=== PATIENT | male | born 1965 | race Caucasian/White ===

== ENCOUNTER 2023-12-28 14:38 | Outpatient (OUT) | payer MEDICAID, SELFPAY ==
--- NOTE | 2023-12-28 14:46 | XR_ITS ---
The [address] [address] Patient Name: JACQUE FRANKLIN MRN: [id number] date: 1965 Sex: M Assigned Patient Location: [facility] Current Patient Location: Accession/Order Number: [id number] Exam Date: 12/28/2023 14:50 Report Date: 12/30/2023 04:34 At the request of: ASHELY WRIGHT Procedure: XR clavicle LT PROCEDURE: XR clavicle LT HISTORY: Clavicle enlargement M89.319 COMPARISON: None. FINDINGS: BONES:No fracture, dislocation, or appreciable bone lesion. Mild degenerative changes of the acromioclavicular joint. SOFT TISSUES:No visible soft tissue swelling. EFFUSION:None visible. OTHER: Negative. XR/XR clavicle LT IMPRESSION: 1. No appreciable acute bone abnormality or significant degenerative changes involving the sternoclavicular joint, but evaluation of the sternoclavicular joint is limited on a frontal radiograph. Consider CT chest for further evaluation if clinically indicated. Electronically authenticated by: JOSH THOMPSON Date: 12/30/2023 04:34
== END 2023-12-28 14:39 | disposition home or self-care (01) ==
LOC: RAD 14:42
PROVIDERS: PCP Family Medicine; Visit Provider Family Medicine
DX: M89.319 Hypertrophy of bone, unspecified shoulder (principal)
CPT/HCPCS: 73000

== ENCOUNTER 2024-01-26 09:17 | Outpatient (OUT) | payer MEDICAID, SELFPAY ==
--- OUTSIDE RECORDS SUMMARY | 2024-01-26 09:22 | XMS_ITS | CCD ---
Author Organization [facility] Care Team Providers Care Classroom Monitor Name Role Phone Ashely Patino Primary Care Physician SUKUMAR, DR LUND Admitting Unavailable HOY, DR LUND Attending Unavailable HOY, DR LUND Primary Care Unavailable HOY, DR LUND Admitting Unavailable HOY, DR LUND Attending Unavailable HOY, DR LUND Consulting Unavailable HOY, DR LUND Primary Care Unavailable ZIEBER, DR JOSH Robin Consulting Unavailable HOY, DR LUND Primary Care Unavailable NILL, DR CHATTERJEE Admitting Unavailable NILL, DR CHATTERJEE Attending Unavailable NILL, DR CHATTERJEE Consulting Unavailable KATIE, MARTI OLEARY Consulting Unava ilable ONOFRE, ZOE Admitting Unavailable HOY, DR LUND Primary Care Unavailable ONOFRE, ZOE Attending Unavailable ONOFRE, ZOE Consulting Unavailable KlipperShayan Consulting Unavailable NILL, DR CHATTERJEE Admitting Unavailable HOY, DR LUND Primary Care Unavailable NILL, DR CHATTERJEE Attending Unavailable NILL, DR CHATTERJEE Consulting Unavailable HOY, DR LUND Primary Care Unavailable HOY, DR LUND Admitting Unavailable HOY, DR LUND Attending Unavailable HOY, DR LUND Consulting Unavailable ISISSEN Consulting Unavailable HOY, DR LUND Admitting Unavailable HOY, DR LUND Attending Unavailable HOY, DR LUND Consulting Unavailable HOY, DR LUND Primary Care Unavailable ZIEBER, DR JOSH Robin Consulting Unavailable Ashely Patino Referring Unavailable NILLSen Attending Unavailable NILL, Sen Robin Attending Unavailable NILL, Sen Robin Attending Unavailable NILL, Sen Robin Attending Unavailable HoyAshely Referring Unavailable NILL, Sen Robin Attending Unavailable NILL, Sen Robin Attending Unavailable Allergies Allergy Classification Reported Allergen(s) Allergy Type Date of Onset Reaction(s) Facility (1 source) No Known Medication Allergies; Translations: [No Known Medication Allergies] Propensity to adverse reactions (disorder) [facility] Repository Problems Active Problems Problem Classification Problem Date Documented Da te Episodic/Chronic Abdominal hernia (4 sources) Left inguinal hernia 07-22-2021 Episodic Abdominal pain (5 sources) Bilateral pain of inguinal region; Translations: [Left lower quadrant pain] Onset: 04-20-2022 08-05-2021 Episodic Other and unspecified benign neoplasm (3 sources) Benign neoplasm of sigmoid colon; Translations: [Benign neoplasm of sigmoid colon] Onset: 12-21-2021 Episodic Other and unspecified benign neoplasm (2 sources) Hyperplastic polyp of large intestine 12-21-2021 Episodic Other ear and sense organ disorders (4 sources) Hearing loss 07-22-2021 Chronic Other non-traumatic joint disorders (3 sources) Hip pain 08-05-2021 Episodic Other nutritional; endocrine; and metabolic disorders (4 sources) Body mass index 30+ - obesity 08-04-2021 Chronic Spondylosis; intervertebral disc disorders; other back problems (4 sources) Cervical disc disorder 07-22-2021 Chronic Spondylosis; intervertebral disc disorders; other back problems (4 sources) Low back pain 07-22-2021 Episodic Unclassified (2 sources) Patient encounter status 11-11-2021 Unclassified (1 source) CONTACT W/AND (SUSP) EXPOS COVID-19; Translations: [CONTACT W/AND (SUSP) EXPOS COVID-19] Onset: 12-09-2021 Past or Other Problems Problem Classification Problem Date Documented Da te Episodic/Chronic Anal and rectal conditions (2 sources) Rectal polyp; Translations: [Rectal polyp] Onset: 12-10-2021 Episodic Other and unspecified benign neoplasm (1 source) Benign neoplasm of sigmoid colon; Translations: [BENIGN NEOPLASM OF SIGMOID COLON] Onset: 12-10-2021 Episodic Other non-traumatic joint disorders (5 sources) Pain in left hip; Translations: [PAIN IN LEFT HIP] Onset: 08-17-2021 Episodic Other non-traumatic joint disorders (5 sources) Pain in right hip; Translations: [PAIN IN RIGHT HIP] Onset: 08-12-2021 Episodic Other screening for suspected conditions (not mental disorders or infectious disease) (4 sources) Encounter for screening for malignant neoplasm of colon; Translations: [ENC SCREEN MALIG NEOPLASM COLON] Onset: 12-08-2021 Episodic Residual codes; unclassified (1 source) Acquired absence of other specified parts of digestive tract; Translations: [ACQ ABSENCE OTH PART DIGESTV TRACT] Onset: 12-10-2021 Episodic Screening and history of mental health and substance abuse codes (1 source) Personal history of nicotine dependence; Translations: [PERSONAL HISTORY OF NICOTINE DEPEND] Onset: 12-10-2021 Episodic Results Test Name Value Interpretation Reference Range Facil ity CBC WITH DIFFon 01-10-2024 ABS BASOPHIL 0.01 x10^3ul Normal (0.00 - 0.16) [facility] Comment on above: Order Comment: 1SST 1LAV FACILITY: [facility] [id number] Performed By: #### C BC/D, CHEM-C, TSHFX #### [facility] [address] [facility] [place], [address] ABS EOSINOPHIL 0.08 x10^3ul Normal (0.00 - 0.40) [facility] Comment on above: Order Comment: 1SST 1LAV FACILITY: [facility] [id number] Performed By: #### C BC/D, CHEM-C, TSHFX #### [facility] [address] [facility] [place], [address] ABS IMMATURE GRANS 0.03 x10^3ul Normal (0.00 - 0.11) [facility] Comment on above: Order Comment: 1SST 1LAV FACILITY: [facility] [id number] Performed By: #### C BC/D, CHEM-C, TSHFX #### [facility] [address] [facility] [place], [address] ABS LYMPHOCYTE 1.57 x10^3ul Normal (0.96 - 5.40) [facility] Comment on above: Order Comment: 1SST 1LAV FACILITY: [facility] [id number] Performed By: #### C BC/D, CHEM-C, TSHFX #### [facility] [address] [facility] [place], [address] ABS MONOCYTE 0.64 x10^3ul Normal (0.10 - 1.00) [facility] Comment on above: Order Comment: 1SST 1LAV [facility]AC[facility]: [facility] [id number] Performed By: #### C BC/D, CHEM-C, TSHFX #### [facility] [address] [facility] [place], [address] ABS NEUTROPHIL 3.80 x10^3ul Normal (1.50 - 7.00) [facility] Comment on above: Order Comment: 1SST 1LAV FACILITY: [facility] [id number] Performed By: #### Yudith BC/D, CHEM-C, TSHFX #### [facility] [address] [facility] [place], [address] Basophils/100 WBC (Bld) 0.2 % Normal () [facility] Comment on above: Order Comment: 1SST 1LAV FACILITY: [facility] [id number] Performed By: #### Yudith BC/Rd, CHEM-C, TSHFX #### [facility] [address] [facility] [place], [address] Eosinophils/100 WBC (Bld) 1.3 % Normal () [facility] above: Order Comment: 1SST 1LAV FACILITY: [facility] [id number] Performed By: #### Yudith BC/Rd, CHEM-C, TSHFX #### [facility] [address] [facility] [place], [address] Hematocrit (Bld) [Volume fraction] 45.9 % Normal (42.0 - 52.0) [facility] Comment [facility] above: Order Comment: 1SST 1LAV FACILITY: [facility] [id number] Performed By: #### C BC/D, CHEM-C, TSHFX #### [facility] [address] [facility] [place], [address] Hemoglobin (Bld) [Mass/Vol] 15.3 g/dL Normal (14.0 - 18.0) [facility] Comment on above: Order Comment: 1SST 1LAV FACILITY: [facility] [id number] Performed By: #### C BC/D, CHEM-C, TSHFX #### [facility] [address] [place], [address] IMMATURE GRANS (IG) 0.5 % Normal () [facility] Comment on above: Order Comment: 1SST 1LAV FACILITY: [facility] [id number] Performed By: #### Yudith BC/D, CHEM-C, TSHFX #### [facility] [address] [place], [address] LYMPS 25.6 % Normal () [facility] Comment on above: Order Comment: 1SST 1LAV FACILITY: [facility] [id number] Performed By: #### Yudith BC/D, CHEM-C, TSHFX #### [facility] [address] [place], [address] MCH (RBC) [Entitic mass] 29.6 pg Normal (27.0 - 33.0) [facility] Comment on above: Order Comment: 1SST 1LAV FACILITY: [facility] [id number] Performed By: #### C BC/D, CHEM-C, TSHFX #### [facility] [address] [facility] [place], [address] MCHC (RBC) [Mass/Vol] 33.3 g/dL Normal (30.0 - 37.0) [facility] Comment on above: Order Comment: 1SST 1LAV FACILITY: [facility] [id number] Performed By: #### C BC/D, CHEM-C, TSHFX #### [facility] [address] [facility] [place], [address] MCV (RBC) [Entitic vol] 88.8 fL Normal (80.0 - 94.0) [facility] Comment on above: Order Comment: 1SST 1LAV [facility] [id number] Performed By: #### C BC/D, CHEM-C, TSHFX #### [facility] [address] [place], [address] MONOS 10.4 % Normal () [facility] Comment on above: Order Comment: 1SST 1LAV FACILITY: [facility] [id number] Performed By: #### C BC/D, CHEM-C, TSHFX #### [facility] [address] [place], [address] PLT 241 x10^3ul Normal (130 - 400) [facility] Comment on above: Order Comment: 1SST 1LAV FACILITY: [facility] [id number] Performed By: #### C BC/D, CHEM-C, TSHFX #### [facility] [address] [place], [address] RBC 5.17 x10^6ul Normal (4.70 - 6.10) [facility] Comment on above: Order Comment: 1SST 1LAV FACILITY: [facility] [id number] Performed By: #### C BC/D, CHEM-C, TSHFX #### [facility] [address] [place], [address] RDW-SD 41.1 fl Normal (37.0 - 49.0) [facility] Comment on above: Order Comment: 1SST 1LAV FACILITY: [facility] [id number] Performed By: #### C BC/D, CHEM-C, TSHFX #### [facility] [address] [place], [address] SEGS 62.0 % Normal () [facility] Comment on above: Order Comment: 1SST 1LAV FACILITY: [facility] [id number] Performed By: #### C BC/D, CHEM-C, TSHFX #### [facility] [address] [place], [address] WBC 6.13 x10^3ul Normal (3.80 - 10.60) [facility] Comment on above: Order Comment: 1SST 1LAV FACILITY: [facility] [id number] Performed By: #### C BC/D, CHEM-C, TSHFX #### [facility] [address] [place], [address] COMP METABOLIC PANEL W/GFRon 01-10-2024 Albumin [Mass/Vol] 4.4 g/dL Normal (3.5 - 5.0) [facility] Comment on above: Performed By: #### C BC/D, CHEM-C, TSHFX #### [facility] [address] [place], [address] ALK PHOS 90 U/L Normal (38 - 126) [facility] Comment on above: Performed By: #### C BC/D, CHEM-C, TSHFX #### [facility] [address] [place], [address] ALT [Catalytic activity/Vol] 26 U/L Normal (1 - 45) [facility] Comment on above: Performed By: #### C BC/D, CHEM-C, TSHFX #### [facility] [address] [place], [address] AST [Catalytic activity/Vol] 26 U/L Normal (15 - 46) [facility] Comment on above: Performed By: #### C BC/D, CHEM-C, TSHFX #### [facility] [address] [place], [address] Bilirubin [Mass/Vol] 0.8 mg/dL Normal (0.2 - 1.3) [facility] Comment on above: Performed By: #### C BC/D, CHEM-C, TSHFX #### [facility] [address] [place], [address] Calcium [Mass/Vol] 9.1 mg/dL Normal (8.6 - 10.6) [facility] Comment on above: Performed By: #### C BC/D, CHEM-C, TSHFX #### [facility] [address] [place], [address] Chloride [Moles/Vol] 108 mmol/L High (98 - 107) [facility] Comment on above: Performed By: #### C BC/D, CHEM-C, TSHFX #### [facility] [address] [place], [address] CO2 [Moles/Vol] 28 mmol/L Normal (22 - 30) [facility] Comment on above: Performed By: #### C BC/D, CHEM-C, TSHFX #### [facility] [address] [place], [address] Creatinine [Mass/Vol] 0.98 mg/dL Normal (0.66 - 1.25) [facility] Comment on above: Performed By: #### C BC/D, CHEM-C, TSHFX #### [facility] [address] [place], [address] GFR- AMER 95.4 ML/M1.7 Normal (60.0 - 161.8) [facility] Comment on above: Performed By: #### C BC/D, CHEM-C, TSHFX #### [facility] [address] [place], [address] GFR-NON AFRIC-AMER 78.8 ML/M1.7 Normal (60.0 - 133.8) [facility] Comment on above: Performed By: #### C BC/D, CHEM-C, TSHFX #### [facility] [address] [place], [address] Glucose [Mass/Vol] 105 mg/dL Normal (74 - 106) [facility] Comment on above: Performed By: #### C BC/D, CHEM-C, TSHFX #### [facility] [address] [place], [address] Potassium [Moles/Vol] 5.3 mmol/L High (3.5 - 5.1) [facility] Comment on above: Performed By: #### C BC/D, CHEM-C, TSHFX #### [facility] [address] [place], [address] Protein [Mass/Vol] 6.7 g/dL Normal (6.3 - 8.2) [facility] Comment on above: Performed By: #### C BC/D, CHEM-C, TSHFX #### [facility] [address] [place], [address] Sodium [Moles/Vol] 138 mmol/L Normal (137 - 145) [facility] Comment on above: Performed By: #### C BC/D, CHEM-C, TSHFX #### [facility] [address] [place], [address] Urea nitrogen [Mass/Vol] 14 mg/dL Normal (9 - 20) [facility] Comment on above: Performed By: #### C BC/D, CHEM-C, TSHFX #### [facility] [address] [place], [address] TSH WITH REFLEXon 01-10-2024 REFLEX T4, FREE NO Normal () [facility] Comment on above: Performed By: #### C BC/D, CHEM-C, TSHFX #### [facility] [address] [place], [address] TSH Qn 1.92 m[IU]/L Normal (0.470 - 4.680) [facility] Comment on above: Performed By: #### C BC/D, CHEM-C, TSHFX #### [facility] [address] [place], [address] RAD - CT Reporton 04-15-2022 RAD - CT Report [id number] .00CD:127 Normal [facility] CT ABD/PELV W CONon 04-14-19 CT ABD/PELV W CON EXAMINATION: CT ABD/PELV W CON HISTORY: Inguinal hernia COMPARISON: An MRI examination of the left hip dated 11/04/2021 TECHNIQUE: Axial images were obtained through the abdomen and pelvis following intravenous administration of iodinated contrast. Source images were used to create sagittal and coronal reconstructions. ENTERIC CONTRAST: Yes Dose reduction techniques were achieved by using automated exposure control and/or adjustment of mA and/or kV according to patient size and/or use of iterative reconstruction technique. FINDINGS: Abdomen The visualized portions of the lungs are clear. The size of the heart is within normal limits. The stomach is unremarkable in appearance. No hepatic mass is identified. The gallbladder is absent. No intra- or extrahepatic biliary ductal dilation is identified. The spleen appears normal. The pancreas appears normal. The pancreatic duct is not dilated. The adrenal glands appear normal. The kidneys appear normal. No free intra-abdominal air is detected. No adenopathy is observed. There are scattered aortic calcifications. The small bowel does not appear distended. No air-fluid levels are identified. Pelvis The colon does not appear distended. No significant colonic diverticula are observed. The appendix appears normal. The urinary bladder is unremarkable in appearance. There is a small fat-containing right inguinal hernia. A left inguinal hernia is not identified. No free pelvic fluid is observed. Musculoskeletal Advanced degenerative disc disease is observed at the L1-2 level. A rectus femoris tendon tear is not appreciated on review of images submitted.. IMPRESSION: 1. Small fat-containing right inguinal hernia. Electronically authenticated by: SEN MARINELLI Date: 2022-04-14 12:[address] [facility] Physician Referralon 023 Physician Referral [id number] .00CD:127 Normal [facility] General Surgery Office/Clini c Noteon 12-21-2021 General Surgery Office/Clinic Note Chief Complaint colonoscopy follow up HPI Staff 13 day post operative follow up post colonoscopy with sigmoid biopsy and sigmoid and rectal polypectomies. History of Present Illness 2 weeks s/p colonoscopy with sigmoid and rectal polypectomies; sigmoid tubular adenoma; rectal was hyperplastic polyp; doing well, no abd pain or blood in stools. Review of Systems ROS - Provider Constitutional: no fever, no sweats, no weight loss. Eyes: no glasses, no blurred vision, no visual loss. ENMT: no dentures, no hoarseness, no swallowing difficulties, no hearing loss, no ear infection(s), no nose bleeds. Cardiovascular: normal blood pressure, no chest pain, regular heartbeat, no heart murmur. Respiratory: no shortness of breath, no cough, no asthma, no wheezing. Gastrointestinal: no nausea, no vomiting, no diarrhea, no constipation, no blood in stool, no change in bowel habits, no abdominal pain, no hepatitis. Genitourinary: no kidney stones, no urine infection, no dysuria. Musculoskeletal: no pain, no weakness. Skin: no changing moles, no rash, no skin lumps. Neurologic: no seizures, no epilepsy, no headache. Psychiatric: no emotional or psychiatric problem. Heme/Lymph: no bleeding problems, no anemia, no blood clots, no transfusions. Allergy/Immunologic: no swollen lymph nodes/glands, no IV drug abuse. Other: Additional ROS info: Except as noted in the above Review of Systems and in the History of Present Illness, all other systems have been reviewed and are negative or noncontributory. Assessment/Plan 1. Benign neoplasm of sigmoid colon (D12.5: Benign neoplasm of sigmoid colon) plan surveillance colonoscopy in 5 years; call sooner if problems/questions. 2. Hyperplastic rectal polyp (K62.1: Rectal polyp) see # 1 Follow-up No qualifying data available Problem List/Past Medical History Ongoing Bilateral groin pain Bilateral hip pain BMI 35.0-35.9,adult Cervical disc disease Hearing loss Hyperplastic rectal polyp Left inguinal hernia Low back pain syndrome Screening for malignant neoplasm of colon Tubular adenoma of colon Historical No qualifying data Procedure/Surgical History Colonoscopy (12/08/2021), Cholecystectomy, Repair of left inguinal hernia. Medications No active medications Allergies No Known Allergies No Known Medication Allergies Social History Alcohol - Denies Alcohol Use, 08/04/2021 Substance Abuse Current, Marijuana, Daily, 08/04/2021 Tobacco Former smoker, quit more than 30 days ago Tobacco Use:. Never Smokeless Tobacco Use:. Cigarettes, 1 per day. Started age 20.0 Years. Stopped age 33 Years., 11/10/2021 Family History Alcoholism: Father. Normal [facility] Comment on above: Result Comment: Elec tronically Signed By: EUGENIO QUINN, Sen Steh\Date and Time Signed: 12/21/21 16:22 EDT Reminderson 12-21-2021 Reminders - From: Yoli Jean LPN To: N - Clinical; Sent: 12/21/2021 16:15:04 EDT Show up: 11/07/2026 07:00:00 EDT Subject: colonoscopy recall Due Date/Time: 12/08/2026 07:00:00 EDT Reminder/Recall Patient is due for colonoscopy 12/08/2026 due to history of tubular adenoma. Normal [facility] Pathology Noteon 12-10-2021 Pathology Note [id number]# 1.00CD:127 Normal [facility] Lab Reportson 12-09-2021 Lab Reports [id number] .00CD:127 Normal [facility] Outside Colonoscopyon 2021 Outside Colonoscopy [id number] .00CD:127 Normal [facility] Covid-19 PCR (CVDTB)on SARS-CoV-2 (COVID-19) RNA HERMAN+probe Ql (Unsp spec) Not detected Normal NOT DETECTED [facility] Comment on above: Result Comment: This test is not yet approved or cleared by the [place] FDA. When there are no FDA-approved or cleared tests available, and other criteria are met, FDA can make tests available under an emergency access mechanism called an Emergency Use Authorization (EUA). The EUA for this test is supported by the [place] of Health and Human Service's (HHS's) declaration that circumstances exist to justify the emergency use of in vitro diagnostics for the detection and/or diagnosis of the virus that causes COVID-19. This EUA will remain in effect (meaning this test can be used) for the duration of the COVID-19 declaration justifying emergency of IVDs, unless it is terminated or revoked by FDA (after which the test may no longer be used). When diagnostic testing is negative, the possibility of a false negative should be considered in the context of a patient's recent exposures and the presence of clinical signs and symptoms consistent with SARS-CoV-2. Performed By: #### [facility] #### [facility] [address] [address] [address] Colleen Lacy Consent for Procedure/Surger yon 11-11-2021 Consent for Procedure/Surgery [id number] .00CD:127 Normal [facility] Ambulatory Visit Summaryon 0 11-10-2021 Ambulatory Visit Summary JACQUE FRANKLIN :1965 Visit Date:11/10/2021 Ambulatory Visit Instructions Your Care Team Attending Physician - EUGENIO QUINN, Sen Robin Primary Care Physician - Sukumar QUINN, Ashely Referring Physician - Sukumar QUINN, Ashely Procedures Performed Cholecystectomy, Repair of left inguinal hernia. Discharge Vitals Heart Rate (Peripheral) 76 Respiratory Rate 16 Blood Pressure 118/80 Height 172.7 cm Height 172.7 cm Weight 105 kg Weight 105.0 kg BMI 35.21 Allergies No Known Allergies No Known Medication Allergies Problems Ongoing - Any problem that you are currently receiving treatment for. Bilateral groin pain Bilateral hip pain BMI 35.0-35.9,adult Cervical disc disease Hearing loss Left inguinal hernia Low back pain syndrome Normal [facility] RAD - CT Reporton 11-08-2021 RAD - CT Report [id number] .00CD:127 Normal [facility] MRI HIP LT WO CONon 11-05-19 MRI HIP LT WO CON EXAMINATION: MRI HIP LT WO CON HISTORY: Pain of left hip joint a COMPARISON: No relevant comparison available. TECHNIQUE: A comprehensive examination was performed utilizing a variety of imaging planes and imaging parameters to optimize visualization of suspected pathology. Images were performed without contrast. FINDINGS: FEMORAL HEAD: No AVN, fracture, or significant arthropathy. ACETABULUM: No fracture or significant arthropathy. OTHER BONES: Normal appearance of the visualized portion of the pelvis. LABRUM: Suspect tear of the superior labrum, and likely small tear of the anterior labrum. Questionable tear of the inferior labrum versus artifact. EFFUSIONS: None. No synovitis or loose bodies. BURSAE: No evidence of iliopsoas or trochanteric bursitis. TENDONS: Normal gluteus tendons, iliopsoas tendon, and hamstring origin. MUSCLES: No tear or strain. No inappropriate atrophy. OTHER: Negative. IMPRESSION: 1. Suspect tear of the anterior and superior labrum. 2. Questionable tear of the inferior labrum. Electronically authenticated by: JOSH THOMPSON Date: 2021-11-04 17:[address] [facility] XR ARTHRO HIP LT EXPon 11-04 XR ARTHRO HIP LT EXP EXAMINATION: XR ARTHRO HIP LT EXP HISTORY: Pain of left hip joint COMPARISON: No relevant comparison available. TECHNIQUE: An arthrogram was performed under fluoroscopic guidance using non-ionic contrast material in the usual sterile manner after obtaining informed consent. Standard level fluoroscopic mode of operation utilized. FINDINGS: JOINT: Left hip NEEDLE: 25 gauge, 3.5 spinal needle. MEDICATION: Approximately 9 mL injected into joint space consisting of a mixture of 5 cc Omnipaque-300, 5 cc 1% Xylocaine and 0.2 cc Dotarem. TECHNIQUE: Anterior approach under fluoroscopic guidance. CLINICAL: No pain following the injection. COMPLICATIONS: None. BONES: No fracture, significant osseous degenerative changes, or visible bone lesion. BURSA: No visible extension of contrast into the subacromial-subdeltoi d bursa at this time. OTHER: Negative. IMPRESSION: 1. Technically successful left hip arthrogram without complication. 2. Please see separate MRI arthrogram report. Electronically authenticated by: JOSH THOMPSON Date: 2021-11-04 13:[address] [facility] XR FOREIGN BODY EYEon 2021 XR FOREIGN BODY EYE EXAMINATION: XR FOREIGN BODY EYE HISTORY: Foreign body in eye COMPARISON: No relevant comparison available. FINDINGS: ORBITS: Negative for a metallic foreign body. OTHER: Negative. IMPRESSION: 1. No metallic foreign body within the orbits. Electronically authenticated by: JOSH THOMPSON Date: 2021-11-04 11:[address] [facility] Physician Referralon 022 Physician Referral [id number]:127 Normal [facility] CT HIP LT WO CONon CT HIP LT WO CON EXAMINATION: CT HIP LT WO CON HISTORY: Pain of left hip joint COMPARISON: X-rays 08/12/2021 TECHNIQUE: Axial CT imaging is performed through the left hip. Sagittal and coronal reformatted/reconstru cted sequences were additionally performed Dose reduction techniques were achieved by using automated exposure control and/or adjustment of mA and/or kV according to patient size and/or use of iterative reconstruction technique. FINDINGS: No fracture, dislocation, subluxation or osseous lesion. Benign subchondral cysts within the anterior inferior aspect of the femoral head. The hip joint is unremarkable for patient's age. The visualized pubic symphysis are unremarkable. Chronic thickening of the visualized colon. Peritoneal air or adjacent peribowel inflammatory stranding. Scattered atherosclerosis of the vascular structures. The superficial subcutaneous soft tissues are free of edema, hematoma, mass or cyst. Nonspecific left inguinal lymph nodes. No discrete hernia. IMPRESSION: Unremarkable left hip CT. Chronic thickening in the visualized colon. Electronically authenticated by: SHAYAN BROWN Date: 2021-10-15 15:[address] [facility] Facesheeton 08-05-2021 Facesheet [id number] .00CD:127 Normal [facility] Physician Referralon

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
== END 2024-01-26 09:18 | disposition home or self-care (01) ==
LOC: CT 09:17
PROVIDERS: PCP Family Medicine; Visit Provider Family Medicine
DX: M89.8X1 Other specified disorders of bone, shoulder (principal)
CPT/HCPCS: 71250

== ENCOUNTER 2024-02-05 09:26 | Outpatient (OUT) | payer MEDICAID, SELFPAY ==
--- OUTSIDE RECORDS SUMMARY | 2024-02-05 09:37 | XMS_ITS | CCD ---
Author Organization [facility] CliniSyfl Care Team Providers Care Field Operations Farm Manager Name Role Phone Ashely Patino Primary Care [...] Attending Unavailable HOY, DR LUND Consulting Unavailable ISSISEN Consulting Unavailable HOY, DR LUND Admitting Unavailable [...] Medication Allergies] Propensity to adverse reactions (disorder) [facility] Repository Problems Active Problems Problem Classification Problem [...] BASOPHIL 0.01 x10^3ul Normal (0.00 - 0.16) [facility] Comment on above: Order Comment: 1SST 1LAV FACILITY: [facility] [id number] Performed By: #### C BC/D, CHEM-C, TSHFX #### [facility] [address] [facility], [address] ABS EOSINOPHIL 0.08 x10^3ul Normal (0.00 - 0.40) [facility] Comment on above: Order Comment: 1SST 1LAV FACILITY: [facility] [id number] Performed By: #### C BC/D, CHEM-C, TSHFX #### [facility] [address] [facility], [address] ABS IMMATURE GRANS 0.03 x10^3ul Normal (0.00 - 0.11) [facility] Comment on above: Order Comment: 1SST 1LAV FACILITY: [facility] [id number] Performed By: #### C BC/D, CHEM-C, TSHFX #### [facility] [address] [facility], [address] ABS LYMPHOCYTE 1.57 x10^3ul Normal (0.96 - 5.40) [facility] Comment on above: Order Comment: 1SST 1LAV FACILITY: [facility] [id number] Performed By: #### C BC/D, CHEM-C, TSHFX #### [facility] [address] [facility], [address] ABS MONOCYTE 0.64 x10^3ul Normal (0.10 - 1.00) [facility] Comment on above: Order Comment: 1SST 1LAV FACILITY: [facility] [id number] Performed By: #### C BC/D, CHEM-C, TSHFX #### [facility] [address] [facility], [address] ABS NEUTROPHIL 3.80 x10^3ul Normal (1.50 - 7.00) [facility] Comment on above: Order Comment: 1SST 1LAV FACILITY: [facility] [id number] Performed By: #### Yudith BC/D, CHEM-C, TSHFX #### [facility] [address] [facility], [address] Basophils/100 WBC (Bld) 0.2 % Normal () [facility] Comment on above: Order Comment: 1SST 1LAV FACILITY: [facility] [id number] Performed By: #### Yudith BC/Rd, CHEM-C, TSHFX #### [facility] [address] [facility], [address] Eosinophils/100 WBC (Bld) 1.3 % Normal () [facility] Comment on above: Order Comment: 1SST 1LAV FACILITY: [facility] [id number] Performed By: #### Yudith BC/Rd, CHEM-C, TSHFX #### [facility] [address] [facility], [address] Hematocrit (Bld) [Volume fraction] 45.9 % Normal (42.0 - 52.0) [facility] Comment on above: Order Comment: 1SST 1LAV FACILITY: [facility] [id number] Performed By: #### C BC/D, CHEM-C, TSHFX #### [facility] [address] [facility], [address] Hemoglobin (Bld) [Mass/Vol] 15.3 g/dL Normal (14.0 - 18.0) [facility] Comment on above: Order Comment: 1SST 1LAV FACILITY: [facility] [id number] Performed By: #### C BC/D, CHEM-C, TSHFX #### [facility] [address] [place], [address] IMMATURE GRANS (IG) 0.5 % Normal () [facility] Comment on above: Order Comment: 1SST 1LAV FACILITY: [facility] [id number] Performed By: #### Yudith BC/D, CHEM-C, TSHFX #### [facility] [address] [place], [address] LYMPS 25.6 % Normal () [facility] Comment on above: Order Comment: 1SST 1LAV FACILITY: [facility] [id number] Performed By: #### Yudith BC/D, CHEM-C, TSHFX #### [facility] [address] [place], [address] MCH (RBC) [Entitic mass] 29.6 pg Normal (27.0 - 33.0) [facility] Comment on above: Order Comment: 1SST 1LAV FACILITY: [facility] [id number] Performed By: #### C BC/D, CHEM-C, TSHFX #### [facility] [address] [facility], [address] MCHC (RBC) [Mass/Vol] 33.3 g/dL Normal (30.0 - 37.0) [facility] Comment on above: Order Comment: 1SST 1LAV FACILITY: [facility] [id number] Performed By: #### C BC/D, CHEM-C, TSHFX #### [facility] [address] [facility], [address] MCV (RBC) [Entitic vol] 88.8 fL Normal (80.0 - 94.0) [facility] Comment on above: Order Comment: 1SST 1LAV [facility] [id number] Performed By: #### C BC/D, CHEM-C, TSHFX #### [facility] [address] [place], [address] MONOS 10.4 % Normal () [facility] Comment on above: Order Comment: 1SST 1LAV FACILITY: [facility] [id number] Performed By: #### C BC/D, CHEM-C, TSHFX #### [facility] [address] [place], [address] PLT 241 x10^3ul Normal (130 - 400) [facility] Comment on above: Order Comment: 1SST 1LAV FACILITY: [facility] [id number] Performed By: #### C BC/D, CHEM-C, TSHFX #### [facility] [address] [place], [address] RBC 5.17 x10^6ul Normal (4.70 - 6.10) [facility] Comment on above: Order Comment: 1SST 1LAV FACILITY: [facility] [id number] Performed By: #### C BC/D, CHEM-C, TSHFX #### [facility] [address] [place], [address] RDW-SD 41.1 fl Normal (37.0 - 49.0) [facility] Comment on above: Order Comment: 1SST 1LAV FACILITY: [facility] [id number] Performed By: #### C BC/D, CHEM-C, TSHFX #### [facility] [address] [place], [address] SEGS 62.0 % Normal () [facility] Comment on above: Order Comment: 1SST 1LAV FACILITY: [facility] [id number] Performed By: #### C BC/D, CHEM-C, TSHFX #### [facility] [address] [place], [address] WBC 6.13 x10^3ul Normal (3.80 - 10.60) [facility] Comment on above: Order Comment: 1SST 1LAV FACILITY: [facility] [id number] Performed By: #### C BC/D, CHEM-C, TSHFX #### [facility] [address] [place], [address] COMP METABOLIC PANEL W/GFRon 01-10-2024 Albumin [Mass/Vol] 4.4 g/dL Normal (3.5 - 5.0) [facility] Comment on above: Performed By: #### C BC/D, CHEM-C, TSHFX #### [facility] [address] [place], [address] ALK PHOS 90 U/L Normal (38 - 126) [facility] Comment on above: Performed By: #### C BC/D, CHEM-C, TSHFX #### [facility] [address] [place], [address] ALT [Catalytic activity/Vol] 26 U/L Normal (1 - 45) [facility] Comment on above: Performed By: #### C BC/D, CHEM-C, TSHFX #### [facility] [address] [place], [address] AST [Catalytic activity/Vol] 26 U/L Normal (15 - 46) [facility] Comment on above: Performed By: #### C BC/D, CHEM-C, TSHFX #### [facility] [address] [place], [address] Bilirubin [Mass/Vol] 0.8 mg/dL Normal (0.2 - 1.3) [facility] Comment on above: Performed By: #### C BC/D, CHEM-C, TSHFX #### [facility] [address] [place], [address] Calcium [Mass/Vol] 9.1 mg/dL Normal (8.6 - 10.6) [facility] Comment on above: Performed By: #### C BC/D, CHEM-C, TSHFX #### [facility] [address] [place], [address] Chloride [Moles/Vol] 108 mmol/L High (98 - 107) [facility] Comment on above: Performed By: #### C BC/D, CHEM-C, TSHFX #### [facility] [address] [place], [address] CO2 [Moles/Vol] 28 mmol/L Normal (22 - 30) [facility] Comment on above: Performed By: #### C BC/D, CHEM-C, TSHFX #### [facility] [address] [place], [address] Creatinine [Mass/Vol] 0.98 mg/dL Normal (0.66 - 1.25) [facility] Comment on above: Performed By: #### C BC/D, CHEM-C, TSHFX #### [facility] [address] [place], [address] GFR- AMER 95.4 ML/M1.7 Normal (60.0 - 161.8) [facility] Comment on above: Performed By: #### C BC/D, CHEM-C, TSHFX #### [facility] [address] [place], [address] GFR-NON AFRIC-AMER 78.8 ML/M1.7 Normal (60.0 - 133.8) [facility] Comment on above: Performed By: #### C BC/D, CHEM-C, TSHFX #### [facility] [address] [place], [address] Glucose [Mass/Vol] 105 mg/dL Normal (74 - 106) [facility] Comment on above: Performed By: #### C BC/D, CHEM-C, TSHFX #### [facility] [address] [place], [address] Potassium [Moles/Vol] 5.3 mmol/L High (3.5 - 5.1) [facility] Comment on above: Performed By: #### C BC/D, CHEM-C, TSHFX #### [facility] [address] [place], [address] Protein [Mass/Vol] 6.7 g/dL Normal (6.3 - 8.2) [facility] Comment on above: Performed By: #### C BC/D, CHEM-C, TSHFX #### [facility] [address] [place], [address] Sodium [Moles/Vol] 138 mmol/L Normal (137 - 145) [facility] Comment on above: Performed By: #### C BC/D, CHEM-C, TSHFX #### [facility] [address] [place], [address] Urea nitrogen [Mass/Vol] 14 mg/dL Normal (9 - 20) [facility] Comment on above: Performed By: #### C BC/D, CHEM-C, TSHFX #### [facility] [address] [place], [address] TSH WITH REFLEXon 01-10-2024 REFLEX T4, FREE NO Normal () [facility] Comment on above: Performed By: #### C BC/D, CHEM-C, TSHFX #### [facility] [address] [place], [address] TSH Qn 1.92 m[IU]/L Normal (0.470 - 4.680) [facility] Comment on above: Performed By: #### C BC/D, CHEM-C, TSHFX #### [facility] [address] [place], [address] RAD - CT Reporton 04-15-2022 RAD - CT Report [id number] .00CD:127 Normal [facility] CT ABD/PELV W CONon 04-14-19 CT ABD/PELV [...] by: SEN MARINELLI Date: 2022-04-14 12:32 Normal [facility] Physician Referralon 023 Physician Referral [id number] .00CD:127 Normal [facility] General Surgery Office/Clini c Noteon 12-21-2021 General [...] Years., 11/10/2021 Family History Alcoholism: Father. Normal [facility] Comment on above: Result Comment: Elec tronically Signed By: EUGENIO QUINN, Sen Seth\Date and Time Signed: 12/21/21 16:22 EDT Reminderson 12-21-2021 Reminders - From: Yoli Jean LPN To: N - Clinical; Sent: 12/21/2021 16:15:04 EDT Show up: 11/07/2026 07:00:00 EDT Subject: colonoscopy recall Due Date/Time: 12/08/2026 07:00:00 EDT Reminder/Recall Patient is due for colonoscopy 12/08/2026 due to history of tubular adenoma. Normal [facility] Pathology Noteon 12-10-2021 Pathology Note [id number]# 1.00CD:127 Normal [facility] Lab Reportson 12-09-2021 Lab Reports [id number] .00CD:127 Normal [facility] Outside Colonoscopyon 2021 Outside Colonoscopy [id number] .00CD:127 Normal [facility] Covid-19 PCR (CVDTB)on SARS-CoV-2 (COVID-19) RNA HERMAN+probe [...] for this test is supported by the Inspecting And Testing Lead Hand of Health and Human Service's (HHS's) declaration [...] consistent with SARS-CoV-2. Performed By: #### C [facility] #### [facility] [address] [address] [address] Colleen Lacy Consent for Procedure/Surger yon 11-11-2021 Consent for Procedure/Surgery [id number] .00CD:127 Normal [facility] Ambulatory Visit Summaryon 0 11-10-2021 Ambulatory Visit [...] inguinal hernia Low back pain syndrome Normal [facility] RAD - CT Reporton 11-08-2021 RAD - CT Report [id number] .00CD:127 Normal [facility] MRI HIP LT WO CONon 11-05-19 MRI [...] by: JOSH THOMPSON Date: 2021-11-04 17:45 Normal [facility] XR ARTHRO HIP LT EXPon 11-04 XR [...] by: JOSH THOMPSON Date: 2021-11-04 13:07 Normal [facility] XR FOREIGN BODY EYEon 2021 XR FOREIGN BODY EYE EXAMINATION: XR FOREIGN BODY EYE HISTORY: Foreign body in eye COMPARISON: No relevant comparison available. FINDINGS: ORBITS: Negative for a metallic foreign body. OTHER: Negative. IMPRESSION: 1. No metallic foreign body within the orbits. Electronically authenticated by: JOSH THOMPSON Date: 2021-11-04 11:28 Normal [facility] Physician Referralon 022 Physician Referral [id number] .00CD:127 Normal [facility] CT HIP LT WO CONon CT HIP [...] by: SHAYAN BROWN Date: 2021-10-15 15:56 Normal [facility] Facesheeton 08-05-2021 Facesheet [id number] .00CD:127 Normal [facility] Physician Referralon 022 Physician Referral [id number] .00CD:127 Normal [facility] Vital Signs Date Time Vital Sign Value Performing Clinician Magdalena pang 04-20-2022 13:21-0500 Blood Pressure Location Sen ALCANTAR [facility] 04-20-2022 13:21-0500 Diastolic blood pressure 80 mm[Hg] Sen ALCANTAR [facility] 04-20-2022 13:21-0500 Heart rate 70 /min Sen NILL [facility] 04-20-2022 13:21-0500 Respiratory rate 16 /min Sen NILL [facility] 04-20-2022 13:21-0500 Systolic blood pressure 120 mm[Hg] Sen NILL [facility] 11-10-2021 15:29-0400 Blood Pressure Location Sen NILL [facility] 11-10-2021 15:29-0400 Diastolic blood pressure 80 mm[Hg] Sen NILL [facility] 11-10-2021 15:29-0400 Heart rate 76 /min Sen NILL [facility] 11-10-2021 15:29-0400 Respiratory rate 16 /min Sen NILL [facility] 11-10-2021 15:29-0400 Systolic blood pressure 118 mm[Hg] Sen NILL [facility] 08-04-2021 13:30-0400 Blood Pressure Location Sen NILL [facility] 08-04-2021 13:30-0400 Diastolic blood pressure 80 mm[Hg] Sen NILL [facility] 08-04-2021 13:30-0400 Heart rate 80 /min Sen NILL [facility] 08-04-2021 13:30-0400 Respiratory rate 16 /min Sen NILL [facility] 08-04-2021 13:30-0400 Systolic blood pressure 120 mm[Hg] Sen ALCANTAR [facility] Encounters Encounter Date Encounter Type Care Provider Facility Start: 04-20-2022 End: 04-21-2022 [facility]ulatory [facility] Start: 04-20-2022 End: 04-20-2022 Patient encounter procedure Sen ALCANTAR [facility] Start: 04-14-2022 End: 04-15-[address] ASHELY PATINO Facility:[facility] Start: 12-21-2021 End: 12-22-2021 ambulatory [facility] Start: 12-21-2021 End: 12-21-2021 Patient encounter procedure Sen WOODWARDL [facility] Start: 12-09-2021 Encounter for preprocedural laboratory examination DR SEN ALCANTAR [facility] Start: 12-08-2021 End: 12-09-[address] ASHELY PATINO Facility:[facility] Start: 12-07-2021 End: 12-08-[address] SEN ALCANTAR Facility:[facility] Start: 12-07-2021 End: 12-08-2021 Encounter for preprocedural laboratory examination DR SEN ALCANTAR Facility:[facility] Start: 11-10-2021 End: 11-11-2021 ambulatory Ashely Patino [facility] Start: 11-10-2021 End: 11-10-2021 Patient encounter procedure Sen ALCANTAR [facility] Start: 11-04-2021 End: 11-04-[address] ASHELY PATINO Facility:[facility] Start: 10-15-2021 End: 10-16-2021 ambulatory ZOE ADHIKARI Facility:[facility] Start: 08-13-2021 End: 09-09-[address] ASHEYL PATINO Facility:[facility] Start: 08-12-2021 End: 08-13-[address] ASHELY PATINO Facility:[facility] Start: 08-04-2021 End: 08-05-2021 ambulatory Sen ALCANTAR [facility] Start: 08-04-2021 End: 08-04-2021 Patient encounter procedure Sen ALCANTAR [facility] Start: 08-03-2021 ambulatory Ashely Patino Facility:[facility] Start: 07-20-2021 ambulatory Asheyl Patino [facility] Procedures Date Procedure Procedure Detail Performing Clinician Start: 12-08-2021 Colonoscopy Sen MTZ Cholecystectomy Sen EUGENIO Repair of left ingui nal hernia Sen ALCANTAR Immunizations Immunization Date Immunization Notes Care Provider Fa cility NEGATED: Highlighted row has not occurred!04-20-2022 influenza virus vaccine, unspecified formulation Sen ALCANTAR [facility] Payers Date Payer Category Payer Medicaid [id number] 1965 Unknown [id number] 2.16.84 [id number] 1965 Unknown [id number] 2.16.84 [id number] 1966 Unknown [id number] 2.16.84 0.1.357246.3.579.2.59 1966 Unknown [id number] .16.84 0.1.572422.3.579.259 1966 Unknown [id number] 2.16.84 0.1.906772.3.579.2.593 1966 Unknown [id number] 2.16.84 0.1.933229.3.579.2.593 1966 Unknown [id number] 2.16.84 0.1.475487.3.579.2.593 1966 Unknown [id number] 2.16.8 40.1.176975.3.579.2.727 1966 Unknown [id number] 2.16.8 40.1.980471.3.579.2.727 1966 Unknown [id number] 2.16.8 40.1.658008.3.579.2.727 1966 Unknown [id number] 2.16.8 40.1.001362.3.579.2.727 1966 Unknown [id number] 2.16.8 40.1.447548.3.579.2.727 1966 Unknown [id number] 2.16.8 [id number] 1959 Unknown [id number] Social History Date Type Detail Facility Start: 08-04-2021 End: 04-20-2022 Tobacco smoking status Ex-smoker (finding) [facility] Tobacco smoking status Never [facility] Sex Assigned At Male [facility] Functional Status Date Assessment Result Facility 04-20-2022 Functional Status N/A [facility]21 Functional Status N/A [facility] Clinical Note 04-20-2022 Note Date & Type [...] hip, is having repair in July at [facility]; had recent repeat abd ct scan to [...] hip surgery, he will be referred to [facility] hernia center, that specializes in chronic hernia [...] vaccine, inactivated - Not Given Patient Refuses [facility] Comment on above: Result Comment: Elec tronically [...] 33 Years., 11/10/2021 Family History Alcoholism: Father. [facility] Comment on above: Result Comment: Elec tronically [...] Robin, SHAHEED Only if [place] [address]- Additional Instructions: Problem List/Past Medical History Ongoing [...] 33 Years., 08/04/2021 Family History Alcoholism: Father. [facility] Comment on above: Result Comment: Elec tronically Signed By: EUGENIO QUINN, Sen Seth\Date and Time Signed: 08/05/21 16:18 EDT Evaluation + Plan note Note Date & Type Note Facility Evaluation + Plan note No data available for this section [facility] Discharge instructions Note Date & Type Note Facility Hospital Discharge instructions No data available for this section [facility] Progress note Note Date & Type Note Facility Progress note No data available for this section [facility] Summary Purpose Family History No Family History Records FoundNo Family History Records FoundNo Family History Records Found Advance Directives No Advanced Directives Records FoundNo Advanced Directives Records FoundNo Advanced Directives Records Found Additional Source Comments Care Team (unrecognized sect ion and content) Personnel Name: Ashely Patino MD Address: [address] [place] [address] Personnel Name: Ashely Patino MD Address: [address] [place] [address] Personnel Name: Ashely Patino MD Address: Address: [address] [place] [address] (unrecognized sect ion and content) No Status Records FoundNo Status Records FoundNo Status Records Found INFORMATION SOURCE (unrecogn ized section and content) DATE CREATED AUTHOR 04/15/2022 [facility] DATE CREATED AUTHOR AUTHOR'S ORGANIZ ATION 06/08/2022 [facility] DATE CREATED AUTHOR AUTHOR'S ORGANIZ ATION 01/12/2024 [facility] FOR RECORDS PERTAINING TO PATIENTS WHO [...] BE BASED ON THE PRIMARY CLINICAL RECORDS. [facility]. provides no warranty or guarantee of the accuracy or completeness of information in this document.
[2024-02-05 11:37] LABS: Anion Gap 13.5; BUN Creatinine Ratio 17.4; Calcium 9.2 mg/dL (8.5-10.1); Carbon Dioxide 27.2 mmol/L (21.0-32.0); Chloride 107 mmol/L (98-107); Estimated GFR (African America >60 (>=60 mL/min/1.73m^2); Estimated GFR (Non-African Ame >60 (>=60 mL/min/1.73m^2); Glucose 91 mg/dL (74-106); Potassium 4.7 mmol/L (3.5-5.1); Sodium 143 mmol/L (136-145)
== END 2024-02-05 09:27 | disposition home or self-care (01) ==
LOC: LAB 09:31
PROVIDERS: PCP Family Medicine; Visit Provider Family Medicine
DX: E87.5 Hyperkalemia (principal)
CPT/HCPCS: 36415; 80048

== ENCOUNTER 2024-02-05 12:53 | Outpatient (RCR) | payer MEDICAID, SELFPAY | END 2024-02-24 15:53 | disposition home or self-care (01) | LOC: PT 12:53 | PROVIDERS: PCP Family Medicine; Visit Provider Family Medicine | DX: M25.512 Pain in left shoulder (principal); E87.5 Hyperkalemia | CPT/HCPCS: 36415; 80048; 97010; 97035; 97110; 97140; 97161 ==